=== PATIENT | female | born 1960 | race Hispanic/Latino ===

== ENCOUNTER 2022-10-31 07:59 | Outpatient (CLI) | payer OTHER ==
[2022-10-31] MEDS ORDERED: Iopamidol 370 76% 100 ML VIAL ONE (15:55)
== END 2022-10-31 08:00 | disposition home or self-care (01) ==
LOC: BICCT 07:59
PROVIDERS: ATTEND Family Medicine
DX: K57.92 Diverticulitis of intestine, part unspecified, without perforation or abscess without bleeding (principal); K57.30 Diverticulosis of large intestine without perforation or abscess without bleeding; K80.20 Calculus of gallbladder without cholecystitis without obstruction; K44.9 Diaphragmatic hernia without obstruction or gangrene; K76.89 Other specified diseases of liver
CPT/HCPCS: 74177; 82565; Q9967

== ENCOUNTER 2022-11-07 07:52 | Outpatient (CLI) | payer SELFPAY ==
[2022-11-07 08:55] LABS: Hemoglobin 13.5 g/dL (12.0-15.5); Mean Corpuscular HGB CONC 32.5 g/dL (32.0-36.0); Mean Corpuscular Hemoglobin 30.3 pg (27.0-33.0); Mean Platelet Volume 10.7 fl (7.4-10.4); Platelet Count 291 10x3/uL (150-450); RBC Distribution Width 14.8 % (11.5-14.5); Red Blood Cell (RBC) Count 4.46 10x6/uL (3.90-5.03); White Blood Cell (WBC) Count 30.4 10x3/uL (3.5-10.5)
[2022-11-07 09:05] LABS: ALT (SGPT) 44 U/L (8-55); AST (SGOT) 30 U/L (5-34); Albumin 4.3 g/dL (3.5-5.0); Alkaline Phosphatase 124 U/L (40-110); Anion Gap 15 mmol/L (10-20); BUN (Urea Nitrogen) 12 mg/dL (9.8-20.1); Bilirubin, Direct 0.2 mg/dL (0.1-0.3); Bilirubin, Total 0.4 mg/dL (0.2-1.2); Calc. Creatinine Clearance 0 mL/min (70-130); Calcium 9.5 mg/dL (7.8-10.44); Carbon Dioxide 27 mmol/L (22-29); Chloride 107 mmol/L (98-107); Estimated GFR 91; Glucose 103 mg/dL (70-105); Potassium 4.3 mmol/L (3.5-5.1); Protein, Total 6.7 g/dL (6.0-8.3); Sodium 145 mmol/L (136-145)
[2022-11-07 09:22] LABS: MDiff Complete? YES
[2022-11-07 09:25] LABS: Eosinophils 2 % (0-10); Lymphocytes 81 % (21-51); Monocytes 8 % (0-10); Neutrophil 9 % (42-75)
[2022-11-07 09:29] LABS: Platelet Morphology Comment Appears Adequate
[2022-11-07 09:30] LABS: RBC Morphology Normal; Reflex for Review?? YES
== END 2022-11-07 07:53 | disposition home or self-care (01) ==
LOC: LABBT 07:52
PROVIDERS: ATTEND Surgery
DX: Z01.812 Encounter for preprocedural laboratory examination (principal); K81.9 Cholecystitis, unspecified
CPT/HCPCS: 80048; 80076; 85025; 85060; 88184

== ENCOUNTER 2022-11-09 09:31 | Day surgery (SDC) | payer SELFPAY ==
[2022-11-08 09:19] VITALS: BMI 28.8
[2022-11-09] MEDS ORDERED: Lidocaine 1% MPF 2 ML VIAL ONE (09:57)
[2022-11-09] MEDS ORDERED: cefOXitin 2 GM VIAL ONE (09:57)
[2022-11-09] MEDS ORDERED: Sodium Chloride 0.9% 100 ML ONE (09:57)
[2022-11-09] MEDS ORDERED: Bupivacaine/Epinephrine 0.25% 30 ML VIAL ONE (11:54)
[2022-11-09] MEDS ORDERED: Lidocaine 1% (PF) 30 ML VIAL ONE (11:54)
[2022-11-09] MEDS ORDERED: Fentanyl 250 MCG/5 ML VIAL ONE (12:05)
[2022-11-09] MEDS ORDERED: Glycopyrrolate 0.2 MG/ML 5 ML SYRINGE ONE (12:19)
[2022-11-09] MEDS ORDERED: Ketorolac Tromethamine 30 MG/ML VIAL ONE (12:19)
[2022-11-09] MEDS ORDERED: Lidocaine 1% PF 5 ML VIAL ONE (12:19)
[2022-11-09] MEDS ORDERED: Ondansetron PF 4 MG/2 ML Vial ONE (12:19)
[2022-11-09] MEDS ORDERED: NEOSTIGMINE 3 MG/3 ML SYR 3 MG/3 ML SYRINGE ONE (12:19)
[2022-11-09] MEDS ORDERED: PROPOFOL 200 MG/20 ML VIAL ONE (12:19)
[2022-11-09] MEDS ORDERED: Rocuronium Bromide 10 MG/ML (10ML VIAL) ONE (12:19)
[2022-11-09] MEDS ORDERED: Dexamethasone 20 MG/5 ML VIAL ONE (12:19)
[2022-11-09] MEDS ORDERED: Meperidine HCl/PF 25 MG/ML VIAL ONE (13:31)
[2022-11-09] MEDS ORDERED: Fentanyl 100 MCG/2 ML VIAL ONE (13:32)
== END 2022-11-09 14:55 | disposition home or self-care (01) ==
LOC: SDC 09:31
PROVIDERS: ATTEND Surgery
PROC: 0FT44ZZ Resection of Gallbladder, Percutaneous Endoscopic Approach (ICD-10-PCS; principal; 2022-11-09)
DX: K80.10 Calculus of gallbladder with chronic cholecystitis without obstruction (principal); F17.210 Nicotine dependence, cigarettes, uncomplicated; Z79.899 Other long term (current) drug therapy
CPT/HCPCS: 88304; C1889; J0694; J1100; J1885; J2001; J2175; J2405; J2704; J3010; J3490